=== PATIENT | female | born 1975 ===

== ENCOUNTER 2016-09-28 11:30 | Emergency (ER) | payer BC, OTHER ==
[2016-09-28 12:31] VITALS: BP 158/92
[2016-09-28] MEDS ORDERED: Tetan/Diph/Pertus SYR(Tdap)* 0.5 ML SYR(BOOSTRIX) use SYR IM ONE (12:55)
--- NOTE | 2016-09-28 12:59 | UC ---
Bite Injury/Animal HPI - HPI Summary HPI Summary: RIGHT INDEX FINGER SQUIRREL BITE X 2 HRS AGO PT. TRIED TO REMOVE THE SQUIRREL OUT OF THE GARAGE AND GO BITTEN ON HIS RIGHT INDEX FINGER - History of Current Complaint Chief Complaint: UCSkin Stated Complaint: RIGHT INDEX FINGER SQUIRREL BITE Time Seen by Provider: 09/28/16 12:49 Hx Obtained From: Patient Hx Last Menstrual Period: 09/06/16 ?: No Severity Currently: Moderate Severity Initially: Moderate Onset/Duration: Sudden Onset, Lasting Hours - 2, Still Present Type of Bite: Wild Animal - AQUIRREL Has Animal Been Immunized?: N/A Character: Puncture Aggravating Factor(s): Exertion Alleviating Factor(s): Nothing Associated Signs And Symptoms: Negative: Fever, Erythema, Drainage, Swelling, Lymphadenopathy, Numbness/Tingling, Limited ROM Animal Available for Observation: No Animal Control Notified: Yes - Risk Factors Infection/Sepsis Risk Factors: Negative - Allergies/Home Medications Allergies/Adverse Reactions: Allergies Allergy/AdvReac Type Severity Reaction Status Date / Time No Known Allergies Allergy Verified 09/28/16 12:31 PMH/Surg Hx/FS Hx/Imm Hx Endocrine History Of: Reports: Thyroid Disease - Surgical History Surgical History: Yes Surgery Procedure, Year, and Place: KNEE SURGERY X 4 , CHOLECYSTECTOMY, THYROID - 1/2 REMOVED - Family History Known Family History: Positive: Cardiac Disease, Hypertension, Diabetes - Social History Alcohol Use: Rare Substance Use Type: None Smoking Status (MU): Never Smoked Tobacco Have You Smoked in the Last Year: No - Immunization History Most Recent Influenza Vaccination: none Most Recent Tetanus Shot: 2010 Review of Systems Constitutional: Negative Skin: Negative Eyes: Negative ENT: Negative Respiratory: Negative Cardiovascular: Negative All Other Systems Reviewed And Are Negative: Yes Physical Exam Triage Information Reviewed: Yes Appearance: Well-Appearing, No Pain Distress, Well-Nourished Vital Signs: Initial Vital Signs Temp 98.9 F 09/28/16 12:23 Pulse 77 09/28/16 12:23 Resp 16 09/28/16 12:23 BP 158/92 09/28/16 12:23 Pulse Ox 100 09/28/16 12:23 Vital Signs Reviewed: Yes Eyes: Positive: Conjunctiva Clear ENT Exam: Normal ENT: Positive: Normal ENT inspection, Hearing grossly normal, Pharynx normal Neck: Positive: Supple, Nontender, No Lymphadenopathy Respiratory: Positive: Chest non-tender, Lungs clear, Normal breath sounds Cardiovascular: Positive: RRR, No Murmur, Pulses Normal Abdominal Exam: Normal Skin: Positive: Other - + 3 PUNCTURE WOUND RIGHT INDEX FIGER Bite Injury Course/Dx - Differential Dx/Diagnosis Provider Diagnoses: ANIMAL BITE RIGHT INDEX FINGER. PUNCTURE WOUND FINGER Discharge - Discharge Plan Condition: Stable Disposition: HOME Prescriptions: Amoxicillin/Clavulanate TAB* [Augmentin TAB 875*] 875 mg PO BID #20 tab Patient Education Materials: Animal Bite (ED) Referrals: Radha Culp MD [Primary Care Provider] - 2 Days
== END 2016-09-28 13:59 | disposition home or self-care (01) ==
LOC: UCCORT 11:30
DX: S61.230A Puncture wound without foreign body of right index finger without damage to nail, initial encounter (principal); W53.21XA Bitten by squirrel, initial encounter; Y93.89 Activity, other specified; Y92.9 Unspecified place or not applicable; Z23 Encounter for immunization; Z90.49 Acquired absence of other specified parts of digestive tract; E89.0 Postprocedural hypothyroidism
CPT/HCPCS: 90715; 99212; G0463